=== PATIENT | female | born 1985 | race Caucasian/White ===

== ENCOUNTER 2019-01-07 13:37 | Emergency (ER) | payer OTHER ==
[2019-01-07 13:41] VITALS: BP 105/65
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
[2019-01-07 15:04] LABS: HCG Qualitative,Urine Negative (Negative)
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
[2019-01-07] MEDS ORDERED: VALIUM PO ONE (16:38)
[2019-01-07] MEDS ORDERED: IBUPROFEN PO ONE (16:38)
[2019-01-07] MEDS ORDERED: IBUPROFEN ONE (16:41)
[2019-01-07] MEDS ORDERED: ULTRAM PO ONE (16:45)
[2019-01-07] MEDS ORDERED: TORADOL IM ONE (16:45)
[2019-01-07] MEDS ORDERED: TORADOL ONE (16:47)
[2019-01-07] MEDS ORDERED: ULTRAM ONE (16:47)
--- NOTE | 2019-01-07 16:54 | XRay Report ---
PROCEDURE: XR SPINE LUMBOSACRAL 2-3V TECHNIQUE: 2 views of the lumbar spine HISTORY: low back pain COMPARISONS: None. FINDINGS: There is normal alignment without acute fracture or dislocation. The vertebral body heights and inter vertebral disc spaces are maintained. The posterior elements are intact. The paravertebral soft tissu es are normal. IMPRESSION: No acute bony abnormality of the lumbar spine. This document is electronically signed by Abbey Coelho MD., January 07 2019 04:52:29 PM ET
--- NOTE | 2019-01-07 17:13 | XRay Report ---
PROCEDURE: XR SPINE CERVICAL 2-3V TECHNIQUE: AP, lateral, and odontoid views of the cervical spine HISTORY: posterior neck pain COMPARISONS: None . FINDINGS: There is mild disc space narrowing at C5-C6. The vertebral body heights and other disc spaces are wel l maintained. However, there is reversal of normal cervical curvature centered around C4-C5, likely d ue to muscle spasm. No prevertebral soft tissue swelling is seen. The odontoid is intact. IMPRESSION: No acute bony abnormality. Reversal of cervical curvature centered around C4-C5 is likely due to muscle spasm. Early degenerative changes at C5-C6 disc space is seen. This document is electronically signed by Deisi Aguilera MD., January 07 2019 05:11:29 PM ET
== END 2019-01-07 20:05 | disposition home or self-care (01) ==
LOC: ED 13:37
DX: S16.1XXA Strain of muscle, fascia and tendon at neck level, initial encounter (principal); S39.012A Strain of muscle, fascia and tendon of lower back, initial encounter; S20.219A Contusion of unspecified front wall of thorax, initial encounter; F17.200 Nicotine dependence, unspecified, uncomplicated; V89.2XXA Person injured in unspecified motor-vehicle accident, traffic, initial encounter; Y93.89 Activity, other specified; Y92.488 Other paved roadways as the place of occurrence of the external cause; Y99.8 Other external cause status
CPT/HCPCS: 71110; 72040; 72100; 81025; 99283; J1885

== ENCOUNTER 2019-06-24 17:38 | Emergency (ER) | payer SELFPAY ==
[2019-06-24 17:55] VITALS: BP 102/65
[2019-06-24 18:31] LABS: Basophils % (Auto) 0.4 % (0.0-1.8); Eosinophils # (Auto) 0.1 K/mm3 (0.0-0.4); Eosinophils % (Auto) 1.4 % (0.0-4.3); Hematocrit 38.2 % (30.3-42.9); Hemoglobin 13.1 gm/dl (10.1-14.3); Lymphocytes # (Auto) 1.8 K/mm3 (1.2-5.4); Lymphocytes % (Auto) 22.2 % (13.4-35.0); Mean Corpuscular HGB Conc 34 % (30-34); Mean Corpuscular Volume 90 fl (79-97); Monocytes # (Auto) 0.5 K/mm3 (0.0-0.8); Monocytes % (Auto) 6.8 % (0.0-7.3); Platelet Count 192 K/mm3 (140-440); Red Blood Count 4.24 M/mm3 (3.65-5.03); Red Cell Distribution Width 13.1 % (13.2-15.2)
[2019-06-24 18:40] LABS: HCG Qualitative,Urine Positive (Negative)
[2019-06-24 18:41] LABS: Bilirubin,Urine NEG (Negative); Blood,Urine NEG (Negative); Calcium Oxalate Crystals,Urine 1+; Color,Urine Amber (Yellow); Mucus,Urine 3+ /HPF
[2019-06-24 18:51] LABS: BUN/Creatinine Ratio 8; Blood Urea Nitrogen 5 mg/dL (7-17); Calcium 9.3 mg/dL (8.4-10.2); Hemolysis Index 14
== END 2019-06-24 20:34 | disposition left against medical advice (07) ==
LOC: ED 17:38
DX: M54.5 Low back pain (principal); Z53.21 Procedure and treatment not carried out due to patient leaving prior to being seen by health care provider
CPT/HCPCS: 36415; 80048; 81001; 81025; 85025; 87086

== ENCOUNTER 2019-12-30 15:22 | Observation (INO) | payer MEDICAID ==
[2019-12-30] MEDS ORDERED: LACTATED RINGERS 1,000 ML ONE (15:54)
[2019-12-30 16:17] LABS: Bilirubin,Urine NEG (Negative); Blood,Urine NEG (Negative); Color,Urine Yellow (Yellow); Mucus,Urine 1+ /HPF; Protein,Urine <15 mg/dL mg/dL (Negative); Urobilinogen,Urine < 2.0 mg/dL (<2.0)
[2019-12-30] MEDS ORDERED: TERBUTALINE 1 MG/1 ML INJ ONE (16:30)
[2019-12-30] MEDS ORDERED: TERBUTALINE 1 MG/1 ML INJ SUB-Q SCH (17:00)
[2019-12-30] MEDS ORDERED: LACTATED RINGERS 1,000 ML IV SCH (18:00)
[2019-12-30] MEDS: BETAMET ACET/BETAMET NA PH 6 MG/ML INJ 5 ML MDV IM SCH (18:02)
[2019-12-30] MEDS: LACTATED RINGERS 1,000 ML IV SCH (18:17)
[2019-12-30] MEDS ORDERED: ACETAMINOPHEN 500 MG TAB PO ONE (18:34)
[2019-12-30 21:02] LABS: Hematocrit 27.2 % (30.3-42.9); Hemoglobin 8.8 gm/dl (10.1-14.3); Mean Corpuscular HGB Conc 33 % (30-34); Mean Corpuscular Volume 81 fl (79-97); Platelet Count 209 K/mm3 (140-440); Red Blood Count 3.36 M/mm3 (3.65-5.03); Red Cell Distribution Width 15.6 % (13.2-15.2)
[2019-12-30 21:14] LABS: BUN/Creatinine Ratio 12; Blood Urea Nitrogen 6 mg/dL (7-17); Calcium 9.2 mg/dL (8.4-10.2); Hemolysis Index 1
--- NOTE | 2019-12-30 21:26 | Ultrasound Report ---
ULTRASOUND OBSTETRIC INDICATION / CLINICAL INFORMATION: labor, well-being check. Clinical Gestational Age (GA): 34 weeks 0 days TECHNIQUE: Transabdominal. COMPARISON: None available. FINDINGS: There is a single intrauterine . Biparietal Diameter = 8.4 cm = 33 weeks, 4 day(s). Head Circumference = 30.5 cm = 33 weeks, 6 day(s). Abdominal Circumference = 30.0 cm = 34 weeks, 0 day(s). Femur Length = 6.0 cm = 31 weeks, 2 day(s). Average Ultrasound Age (AUA) = 33 weeks, 1 day(s). Heart Rate: 155 beats per minute. Estimated Weight in grams (if calculated): 2129 Estimated Weight Growth Percentile (if calculated): Position: cephalic. Cervix: closed. Length in cm (if measured): 3.1 Placenta: Posterior, fundal and free of the os. Amniotic Fluid Volume: normal Amniotic Fluid Index (TITO) in cm (if calculated): 7.0. Maternal Adnexa: No significant abnormality. BREATHING MOVEMENT = 2 GROSS BODY MOVEMENT = 2 TONE = 2 QUALITATIVE AMNIOTIC FLUID VOLUME = 2 TOTAL BIOPHYSICAL SCORE = 8/8 IMPRESSION: 1. Single, living intrauterine with estimated sonographic age of 33 weeks, 1 day(s). 2. No significant sonographic abnormality. Signer Name: Jad Rizzo MD Signed: 12/30/2019 9:21 PM Workstation Name: [id number]
[2019-12-31] MEDS ORDERED: ZOLPIDEM 5 MG TAB PO PRN (00:37)
[2019-12-31] MEDS: ZOLPIDEM 5 MG TAB PO PRN ×2 (00:58→22:05)
[2019-12-31] MEDS: LACTATED RINGERS 1,000 ML IV SCH ×4 (01:36→18:29)
--- NOTE | 2019-12-31 08:06 | History and Physical Report ---
History of Present Illness Date of examination: 12/31/19 Date of admission: 12/30/19 15:23 Chief complaint: contractions History of present illness: Pt is a 34 year old female MICHAELLE 02/10/20 at 34w1d who presents with contractions and cervical change to 3 cm. She denies bleeding or leakage of fluid. She has had care at [facility] since 12 wks complicated by bacterial vaginosis treated, genital herpes without lesion or prodrome, intermittent pelvic pain, syncopal episodes s/p Cardiology referral. She is GBS positive. 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 Family/Genetic History: heart disease Social history: no significant social history - Obstetrical History Expected Date of Delivery: 02/10/20 Actual Gestation: 34 Week(s) 1 Day(s) : 2 Para: 1 Hx # Term Pregnancies: 1 Number of Pregnancies: 0 Spontaneous Abortions: 0 Induced : 0 Number of Living Children: 1 Medications and Allergies Allergies Allergy/AdvReac Type Severity Reaction Status Date / Time No Known Allergies Allergy Verified 09/13/14 10:31 Home Medications Medication Instructions Recorded Confirmed Last Taken Type Ibuprofen [Motrin] 800 mg PO Q8HR PRN #15 tablet 03/06/16 12/31/19 Unknown Rx Ibuprofen [Motrin] 600 mg PO Q8H PRN #20 tablet 08/16/16 12/31/19 Unknown Rx Cyclobenzaprine [Flexeril] 10 mg PO TID PRN #20 tablet 01/07/19 12/31/19 Unknown Rx Ibuprofen 800 mg PO Q6H PRN #15 tablet 01/07/19 12/31/19 Unknown Rx Active Meds: Active Medications Betamethasone Acet/Betameth SodPhos (Celestone Soluspan) 12 mg IM Q24H GEORGETTE Stop: 12/31/19 17:45 Last Admin: 12/30/19 18:02 Dose: 12 mg Documented by: Lactated Ringer's (Lactated Ringers) 1,000 mls @ 125 mls/hr IV DIRECT GEORGETTE Last Admin: 12/31/19 01:36 Dose: 125 mls/hr Documented by: Terbutaline Sulfate (Brethine) 0.25 mg SUB-Q Q20MIN GEORGETTE Stop: 01/01/20 17:01 Last Admin: 12/30/19 17:08 Dose: 0.25 mg Documented by: Zolpidem Tartrate (Ambien) 5 mg PO QHS PRN PRN Reason: Sleep Last Admin: 12/31/19 00:58 Dose: 5 mg Documented by: Review of Systems All systems: negative - Vital Signs Vital signs: Vital Signs Pulse Pulse Ox 98 H 99 12/30/19 15:37 12/30/19 15:37 Temp Pulse Resp BP Pulse Ox 98.9 F 78 18 111/71 100 12/30/19 18:23 12/30/19 18:15 12/30/19 18:23 12/30/19 18:15 12/30/19 17:55 - Physical Exam Breasts: Positive: deferred Cardiovascular: Regular rate Lungs: Positive: Clear to auscultation Abdomen: Positive: soft (gravid ) Uterus: Positive: enlarged (gravid ) Extremities: Positive: normal - Obstetrical FHR: auscultation normal Uterine Contraction Monitor Mode: External Cervical Dilatation: 3 Cervical Effacement Percentage: 50 station: -3 Uterine Contraction Pattern: Irregular Uterine Tone Measurement Phase: Resting Results Result Diagrams: 12/30/19 20:08 12/30/19 20:08 Abnormal lab results 12/30/19 12/30/19 Range/Units 20:08 20:08 RBC 3.36 L (3.65-5.03) M/mm3 Hgb 8.8 L (10.1-14.3) gm/dl Hct 27.2 L (30.3-42.9) % MCH 26 L (28-32) pg RDW 15.6 H (13.2-15.2) % Sodium 136 L (137-145) mmol/L Potassium 3.4 L (3.6-5.0) mmol/L BUN 6 L (7-17) mg/dL Creatinine 0.5 L (0.7-1.2) mg/dL Glucose 134 H (65-100) mg/dL All other labs normal. Assessment and Plan A: IUP at 34w1d s/p 1 dose betamethasone; BPP 12/30/19 8/8; 2129g (AUA 33w1d) labor Genital Herpes without lesion or prodrome GBS positive P: Admit to labor and delivery Continue close clinical monitoring Start Valtrex 500 mg BID and Ampicillin for GBS prophylaxis Second betamethasone dose tonight Cloesly monitor clinical status
[2019-12-31] MEDS ORDERED: AMPICILLIN/NS 2 GM/100 ML 2 GM/100 ML BAG IV SCH (08:30)
[2019-12-31] MEDS ORDERED: SIMETHICONE 80 MG CHEW TAB PO PRN (09:00)
[2019-12-31] MEDS ORDERED: SODIUM CHLORIDE NASAL SPRAY 44ML NS PRN (09:00)
[2019-12-31] MEDS ORDERED: ONDANSETRON 4 MG/2 ML INJ IV PRN (09:00)
[2019-12-31] MEDS ORDERED: DOCUSATE SODIUM 100 MG CAP PO PRN (09:00)
[2019-12-31] MEDS ORDERED: valACYclovir 500 MG TAB PO SCH (10:00)
[2019-12-31] MEDS ORDERED: PRENATAL VIT27-FE FUMARATE-FOLIC ACID VIT TAB PO SCH (10:00)
[2019-12-31] MEDS: AMPICILLIN/NS 1 GM/50 ML 1 GM/50 ML BAG IV SCH ×4 (13:55→23:08)
[2019-12-31] MEDS: ACETAMINOPHEN 325 MG TAB PO PRN ×2 (14:39→19:41)
[2019-12-31] MEDS: BETAMET ACET/BETAMET NA PH 6 MG/ML INJ 5 ML MDV IM SCH (17:23)
[2020-01-01] MEDS: AMPICILLIN/NS 1 GM/50 ML 1 GM/50 ML BAG IV SCH ×2 (03:34→08:30)
[2020-01-01 11:33] LABS: BUN/Creatinine Ratio 10; Blood Urea Nitrogen 3 mg/dL (7-17); Calcium 8.5 mg/dL (8.4-10.2); Hemolysis Index 8
--- NOTE | 2020-01-01 11:46 | Ultrasound Report ---
ULTRASOUND BIOPHYSICAL PROFILE INDICATION / CLINICAL INFORMATION: labor, well being. COMPARISON: 12/30/2019 FINDINGS: BREATHING MOVEMENT = 2 GROSS BODY MOVEMENT = 2 TONE = 2 QUALITATIVE AMNIOTIC FLUID VOLUME = 2 TOTAL BIOPHYSICAL SCORE = 05/22 HEART RATE (beats per minute): 143 IMPRESSION: 1. biophysical profile = 05/22 Signer Name: Pedro Love MD Signed: 01/01/2020 11:41 AM Workstation Name: [id number]
[2020-01-01 12:40] VITALS: BP 101/58
--- NOTE | 2020-01-01 12:50 | Progress Note ---
Assessment and Plan A: IUP at 34w2d s/p 2 doses betamethasone; BPP 01/01/20 8/8 labor arrested at 3 cm Genital Herpes without lesion or prodrome GBS positive P: Discharge today with follow up next week. labor precautions Rx for Valtrex suppression given Subjective - Subjective Date of service: 01/01/20 Principal diagnosis: labor, IUP at 34 wks Interval history: No overnight events. Patient reports: movement normal, contractions (rare ), no new complaints, no loss of fluid, no vaginal bleeding Objective - Vital Signs Vital Signs: Vital Signs - 12hr 01/01/20 01/01/20 01/01/20 00:48 00:53 00:59 Temperature Pulse Rate 79 84 84 Blood Pressure O2 Sat by Pulse 97 98 99 Oximetry 01/01/20 01/01/20 01/01/20 01:04 01:08 01:13 Temperature Pulse Rate 86 84 88 Blood Pressure O2 Sat by Pulse 97 97 97 Oximetry 01/01/20 01/01/20 01/01/20 01:18 01:23 01:28 Temperature Pulse Rate 86 86 87 Blood Pressure O2 Sat by Pulse 97 97 97 Oximetry 01/01/20 01/01/20 01/01/20 01:33 01:39 01:44 Temperature Pulse Rate 85 84 83 Blood Pressure O2 Sat by Pulse 97 97 96 Oximetry 01/01/20 01/01/20 01/01/20 01:48 01:54 01:58 Temperature Pulse Rate 85 82 81 Blood Pressure O2 Sat by Pulse 97 97 97 Oximetry 01/01/20 01/01/20 01/01/20 02:03 02:08 02:13 Temperature Pulse Rate 77 84 83 Blood Pressure O2 Sat by Pulse 97 97 97 Oximetry 01/01/20 01/01/20 01/01/20 02:18 02:23 02:28 Temperature Pulse Rate 79 84 87 Blood Pressure O2 Sat by Pulse 97 98 97 Oximetry 01/01/20 01/01/20 01/01/20 02:33 02:38 02:43 Temperature Pulse Rate 81 78 82 Blood Pressure O2 Sat by Pulse 97 97 97 Oximetry 01/01/20 01/01/20 01/01/20 02:49 02:54 02:58 Temperature Pulse Rate 82 75 74 Blood Pressure O2 Sat by Pulse 97 97 97 Oximetry 01/01/20 01/01/20 01/01/20 03:00 03:03 03:09 Temperature 98.3 F Pulse Rate 69 78 Blood Pressure O2 Sat by Pulse 96 96 Oximetry 01/01/20 01/01/20 01/01/20 03:10 03:14 03:18 Temperature Pulse Rate 76 97 H 77 Blood Pressure O2 Sat by Pulse 94 95 97 Oximetry 01/01/20 01/01/20 01/01/20 03:24 03:28 03:33 Temperature Pulse Rate 75 71 78 Blood Pressure O2 Sat by Pulse 98 97 98 Oximetry 01/01/20 01/01/20 01/01/20 03:38 03:44 03:48 Temperature Pulse Rate 77 74 79 Blood Pressure O2 Sat by Pulse 98 98 98 Oximetry 01/01/20 01/01/20 01/01/20 03:54 03:58 04:04 Temperature Pulse Rate 77 76 80 Blood Pressure O2 Sat by Pulse 97 98 98 Oximetry 01/01/20 01/01/20 01/01/20 04:09 04:13 04:18 Temperature Pulse Rate 77 79 78 Blood Pressure O2 Sat by Pulse 98 98 98 Oximetry 01/01/20 01/01/20 01/01/20 04:23 04:28 04:33 Temperature Pulse Rate 78 77 72 Blood Pressure O2 Sat by Pulse 98 98 98 Oximetry 01/01/20 01/01/20 01/01/20 04:38 04:44 04:49 Temperature Pulse Rate 77 89 80 Blood Pressure O2 Sat by Pulse 97 98 97 Oximetry 01/01/20 01/01/20 01/01/20 04:57 05:03 05:08 Temperature Pulse Rate 90 83 77 Blood Pressure O2 Sat by Pulse 99 97 96 Oximetry 01/01/20 01/01/20 01/01/20 05:13 05:17 05:23 Temperature Pulse Rate 79 78 78 Blood Pressure O2 Sat by Pulse 97 97 97 Oximetry 01/01/20 01/01/20 01/01/20 05:28 05:33 05:38 Temperature Pulse Rate 75 75 74 Blood Pressure O2 Sat by Pulse 97 98 98 Oximetry 01/01/20 01/01/20 01/01/20 05:43 05:48 05:53 Temperature Pulse Rate 75 75 72 Blood Pressure O2 Sat by Pulse 98 97 97 Oximetry 01/01/20 01/01/20 01/01/20 05:58 06:03 06:08 Temperature Pulse Rate 75 86 80 Blood Pressure O2 Sat by Pulse 97 97 97 Oximetry 01/01/20 01/01/20 01/01/20 06:13 06:18 06:23 Temperature Pulse Rate 81 80 76 Blood Pressure O2 Sat by Pulse 96 97 97 Oximetry 01/01/20 01/01/20 01/01/20 06:28 06:33 06:38 Temperature Pulse Rate 76 80 78 Blood Pressure O2 Sat by Pulse 97 97 97 Oximetry 01/01/20 01/01/20 01/01/20 06:43 06:48 06:53 Temperature Pulse Rate 77 77 73 Blood Pressure O2 Sat by Pulse 98 97 98 Oximetry 01/01/20 01/01/20 01/01/20 06:58 07:03 07:08 Temperature Pulse Rate 73 75 79 Blood Pressure O2 Sat by Pulse 99 98 98 Oximetry 01/01/20 01/01/20 01/01/20 07:13 07:18 07:23 Temperature Pulse Rate 75 82 78 Blood Pressure O2 Sat by Pulse 98 98 98 Oximetry 01/01/20 01/01/20 01/01/20 07:28 07:33 07:38 Temperature Pulse Rate 73 79 80 Blood Pressure O2 Sat by Pulse 98 98 99 Oximetry 01/01/20 01/01/20 01/01/20 07:43 07:48 07:53 Temperature Pulse Rate 73 75 75 Blood Pressure O2 Sat by Pulse 98 98 98 Oximetry 01/01/20 01/01/20 01/01/20 07:58 08:03 08:08 Temperature Pulse Rate 86 73 75 Blood Pressure O2 Sat by Pulse 99 98 98 Oximetry 01/01/20 01/01/20 01/01/20 08:13 08:18 08:23 Temperature Pulse Rate 78 70 73 Blood Pressure O2 Sat by Pulse 97 97 97 Oximetry 01/01/2012/31/01/01/20 08:28 08:30 08:33 Temperature 98 F Pulse Rate 72 76 Blood Pressure O2 Sat by Pulse 97 96 Oximetry 01/01/2012/31/01/01/20 08:38 08:43 08:45 Temperature Pulse Rate 77 91 H 77 Blood Pressure 105/57 O2 Sat by Pulse 98 100 Oximetry 01/01/20 01/01/20 01/01/20 08:48 08:53 08:58 Temperature Pulse Rate 71 162 H 160 H Blood Pressure O2 Sat by Pulse 100 81 L 81 L Oximetry 01/01/20 01/01/20 01/01/20 09:03 09:09 09:15 Temperature Pulse Rate 154 H 124 H Blood Pressure O2 Sat by Pulse 78 L 73 L 83 L Oximetry 01/01/20 01/01/20 01/01/20 09:16 09:21 09:24 Temperature Pulse Rate 138 H 94 H 197 H Blood Pressure O2 Sat by Pulse 88 0 L 83 L Oximetry 01/01/20 01/01/20 01/01/20 09:26 09:33 09:38 Temperature Pulse Rate 129 H Blood Pressure O2 Sat by Pulse 88 80 L 85 Oximetry 01/01/20 01/01/20 01/01/20 12:39 12:40 12:45 Temperature Pulse Rate 90 80 82 Blood Pressure 101/58 O2 Sat by Pulse 81 L 92 76 L Oximetry - Exam Abdomen: Present: soft (gravid ) Uterus: Present: normal (gravid ) FHR: auscultation normal Cervical Dilatation: 3 Cervical Effacement Percentage: 50 station: -3 Uterine Contraction Pattern: Absent Uterine Tone Measurement Phase: Resting - Labs Labs: Abnormal Labs 12/30/19 12/30/19 01/01/20 20:08 20:08 10:59 RBC 3.36 L Hgb 8.8 L Hct 27.2 L MCH 26 L RDW 15.6 H Sodium 136 L 136 L Potassium 3.4 L Carbon Dioxide 19 L BUN 6 L 3 L Creatinine 0.5 L 0.3 L Glucose 134 H 106 H Laboratory Results - last 24 hr 01/01/20 10:59 Sodium 136 L Potassium 3.6 Chloride 104.3 Carbon Dioxide 19 L Anion Gap 16 BUN 3 L Creatinine 0.3 L Estimated GFR > 60 BUN/Creatinine Ratio 10 Glucose 106 H Calcium 8.5
--- NOTE | 2020-01-01 12:54 | Discharge Summary ---
Providers - Providers Date of Admission: 12/30/19 15:23 Date of discharge: 01/01/20 Attending physician: SAMEER CRUZ MD Primary care physician: SAMEER CRUZ MD Hospitalization Reason for admission: labor Hospital course: Admitted for labor. Arrested at 3 cm. s/p 2 doses of betamethasone. Condition at discharge: Stable Disposition: DC-01 TO HOME OR SELFCARE - Discharge Diagnoses (1) labor in third trimester Status: Acute Qualifiers: labor delivery status: without delivery Qualified Code(s): O60.03 - labor without delivery, third trimester (2) Genital herpes Status: Acute Qualifiers: Herpes simplex infection site: unspecified Qualified Code(s): A60.00 - Her pesviral infection of urogenital system, unspecified Plan - Discharge Medications Prescriptions: valACYclovir [Valtrex] 500 mg PO BID #60 tab - Provider Discharge Summary Activity: no heavy lifting 4 weeks, no strenuous exercise, other Diet: routine Instructions: routine Additional instructions: [] Smoking cessation referral if applicable(refer to patient education folder for contact #) [] Refer to [facility]'s [facility] Booklet Call your doctor immediately for: * Fever > 100.5 * Heavy vaginal bleeding ( >1 pad per hour) * Severe persistent headache * Shortness of breath * Reddened, hot, painful area to leg or breast * Drainage or odor from incision. * Keep incision clean and dry at all times and follow doctor's instructions regarding bathing/showering - Follow up plan Follow up: ANH OSORIO MD [Staff Physician] - 7 Days
== END 2020-01-01 15:23 | disposition home or self-care (01) ==
LOC: TRG 15:22 → LD 15:23 → TRG 15:23
PROVIDERS: ADMIT Obstetrics & Gynecology; ATTEND Obstetrics & Gynecology
DX: O60.03 Preterm labor without delivery, third trimester (principal); O98.513 Other viral diseases complicating pregnancy, third trimester; A60.00 Herpesviral infection of urogenital system, unspecified; Z3A.34 34 weeks gestation of pregnancy
CPT/HCPCS: 36415; 76816; 76819; 80048; 81001; 85027; 86850; 86900; 86901; 96365; 96366; 96372; G0378; J0290; J0702; J3105; J7120

== ENCOUNTER 2020-03-09 06:00 | Day surgery (SDC) | payer MEDICAID ==
[2020-03-04 11:27] LABS: Basophils % (Auto) 0.7 % (0.0-1.8); Eosinophils # (Auto) 0.1 K/mm3 (0.0-0.4); Hemoglobin 11.6 gm/dl (10.1-14.3); Lymphocytes # (Auto) 1.6 K/mm3 (1.2-5.4); Lymphocytes % (Auto) 25.2 % (13.4-35.0); Mean Corpuscular HGB Conc 33 % (30-34); Mean Corpuscular Volume 82 fl (79-97); Monocytes # (Auto) 0.4 K/mm3 (0.0-0.8); Monocytes % (Auto) 6.9 % (0.0-7.3); Platelet Count 198 K/mm3 (140-440); Red Blood Count 4.29 M/mm3 (3.65-5.03)
[2020-03-04 11:35] LABS: Red Cell Distribution Width 20.2 % (13.2-15.2)
--- NOTE | 2020-03-09 08:47 | Short Stay Summary ---
Short Stay Documentation Date of service: 03/09/20 Narrative H&P: 34y/o with undesired fertility. Patient is aware of other contraceptive options. She elects for permanent sterilization. - History Principal diagnosis: Undesired fertility Past Medical History: No medical history Past Surgical History: No surgical history Social history: single - Allergies and Medications Current Medications: Allergies No Known Allergies Allergy (Verified 03/02/20 16:49) Home Medications Medication Instructions Recorded Confirmed Last Taken Type Ibuprofen [Motrin] 800 mg PO Q8HR PRN #15 tablet 03/06/16 03/02/20 Unknown Rx Butalb/Acetaminophen/Caffeine 1 cap PO Q6HR PRN 03/02/20 03/02/20 Unknown History [Fioricet 50-300-40 mg CAP] - Physical exam General appearance: no acute distress Integumentary: no rash HEENT: Atraumatic Lungs: Clear to auscultation Breasts: deferred Heart: Regular rate Gastrointestinal: normal Female Genitourinary: deferred Rectal Exam: deferred Extremities: no ischemia - Brief post op/procedure progress note Date of procedure: 03/09/20 Pre-op diagnosis: Undesired fertility Post-op diagnosis: same Procedure: Laparoscopy and bilateral salpingectomy Anesthesia: LUZ MARIA Surgeon: DAVID AGUILERA Estimated blood loss: minimal Pathology: list (Bilateral fallopian tubes) Specimen disposition: to lab Condition: stable - Hospital course Hospital course: The patient was admitted the day of surgery and underwent a laparoscopic bilateral tubal ligation. Please see operative note for details of surgery. Her postoperative course was uneventful. - Disposition Condition at discharge: Good Disposition: DC-01 TO HOME OR SELFCARE - Discharge Diagnoses (1) Unwanted fertility Status: Acute Short Stay Discharge Plan Activity: other (Pelvic rest for 1 week) Diet: regular Additional Instructions: Follow-up is not required Follow-up as needed Forms: Outpatient Surgery DC Inst. Prescriptions: Ibuprofen [Motrin] 800 mg PO Q8HR PRN #60 tablet PRN Reason: Pain , Severe (7-10) HYDROcodone/APAP 5-325 [[place] 5/325] 1 each PO Q6HR PRN #20 tablet PRN Reason: Pain
[2020-03-09] MEDS ORDERED: HYDROmorphone 1 MG/1 ML INJ IV PRN (10:14)
[2020-03-09] MEDS ORDERED: ONDANSETRON 4 MG/2 ML INJ IV PRN (10:14)
[2020-03-09] MEDS ORDERED: ACETAMINOPHEN 500 MG TAB PO NR (10:15)
[2020-03-09] MEDS ORDERED: MAGNESIUM OXIDE 400 MG TAB PO NR (10:15)
--- NOTE | 2020-03-09 10:15 | Anesthesia Day of Surgery ---
Anesthesia Day of Surgery - Day of Surgery Patient Examined: Yes Patient H&P Reviewed: Yes Patient is NPO: Yes
--- NOTE | 2020-03-09 10:20 | Anesthesia Consultation ---
Anesthesia Consult and Med Hx Date of service: 03/09/20 - Airway Anesthetic Teeth Evaluation: Chipped ROM Head & Neck: Adequate Mental/Hyoid Distance: Adequate Mallampati Class: Class II Intubation Access Assessment: Good - Pre-Operative Health Status ASA Pre-Surgery Classification: ASA2 Proposed Anesthetic Plan: General ( ) - Pulmonary Hx Smoking: Yes Hx Asthma: No COPD: No Hx Pneumonia: No - Cardiovascular System Hx Hypertension: No (Had ECHO/ECG in December ) - Central Nervous System Hx Seizures: No Hx Psychiatric Problems: No - Endocrine Hx Renal Disease: No Hx End Stage Renal Disease: No Hx Hypothyroidism: No Hx Hyperthyroidism: No - Hematic Hx Anemia: Yes Hx Sickle Cell Disease: No - Other Systems Hx Alcohol Use: No Hx Cancer: No
[2020-03-09] MEDS ORDERED: MIDAZOLAM 2 MG/2 ML INJ IV NR (11:00)
[2020-03-09] MEDS ORDERED: CELECOXIB 200 MG CAP PO NR (11:00)
[2020-03-09] MEDS ORDERED: LACTATED RINGERS 1,000 ML IV SCH (11:00)
[2020-03-09] MEDS ORDERED: BUPIVACAINE/PF (0.5%) 5 MG/1 ML 30 ML VIAL INFILTRATI ONE ×2 (11:41→12:23)
[2020-03-09] MEDS ORDERED: ROCURONIUM 50 MG/5 ML INJ IV ONE (11:43)
[2020-03-09] MEDS ORDERED: GLYCOPYRROLATE 0.4 MG/2 ML INJ ONE (11:43)
[2020-03-09] MEDS ORDERED: PHENYLEPHRINE/NS 1,000 MCG/10 ML SYRINGE (OR USE) IV ONE (11:43)
[2020-03-09] MEDS ORDERED: fentaNYL 100 MCG/2 ML INJ ONE (11:43)
[2020-03-09] MEDS ORDERED: SUCCINYLCHOLINE CHLORIDE 200 MG/10 ML INJ MDV ONE (11:43)
[2020-03-09] MEDS ORDERED: NEOSTIGMINE 10MG/10 ML INJ MDV ONE (11:43)
[2020-03-09] MEDS ORDERED: propofoL 200 MG/20 ML VIAL IV ONE (11:43)
[2020-03-09] MEDS ORDERED: LIDOCAINE MPF (2%) 20 MG/1 ML VIAL 5 ML ONE (11:43)
[2020-03-09] MEDS ORDERED: ONDANSETRON 4 MG/2 ML INJ ONE (11:43)
[2020-03-09] MEDS ORDERED: HYDROmorphone 1 MG/1 ML INJ ONE (12:08)
[2020-03-09] MEDS ORDERED: SODIUM CHLORIDE 0.9% IRR 1,500 ML BOTTLE IR ONE (12:23)
--- NOTE | 2020-03-09 12:47 | Operative Report ---
Operative Report Operative Report: Date of surgery: March 09, 2020 Preoperative diagnosis: Unwanted fertility Postoperative diagnosis: Same as above Procedure: Laparoscopy; bilateral salpingectomy Surgeon: Maude Hauser M.D. Anesthesia: General endotracheal anesthesia Estimated blood loss: Minimal Findings: Normal uterus tubes and ovaries Indication: 34-year-old -1-0-2 with undesired fertility Procedure: The patient was taken to the operating room and given general endotracheal anesthesia without complication. The patient is prepped and draped in a normal sterile fashion. A bivalve speculum was placed in the patient's vagina and a single-tooth tenaculum was placed on the anterior lip of the cervix .A uterine acorn manipulator was placed, and the bivalve speculum was then removed. Attention was then turned to the patient's abdomen where a 5 mm infraumbilical skin incision was then made. A Veress needle was placed and peritoneal entry was verified water-filled syringe. Insufflation of the peritoneal cavity was performed with CO2 gas. A 5 mm trocar was placed and the laparoscope was then inserted. The patient was then placed in Trendelenburg. A 7 mm suprapubic skin incision was then made. Under direct visualization a 7 mm trocar was then placed. An additional left lateral 5 mm trocar was placed under direct visualization general survey of the patient's abdomen revealed normal uterus tubes and ovaries. The fallopian tube was then followed out to the fimbriated end. The tube was grasped at the fimbriated laded end. The LigaSure device was used to coagulate and transect the mesosalpinx. The tube on the left was transected from the ovary and the uterus. The tube was removed with a 7 mm trocar. This was performed on the contralateral side as well. The trocars were then removed. The pneumoperitoneum was then released. The 5 mm trocar laparoscope was then removed. The skin incisions were then closed with 4-0 Monocryl. The incisions were injected with quarter percent Marcaine. Dressings were applied to the incision. The vaginal instruments were then removed atraumatically. Then successfully extubated and taken to the recovery room. All sponge laps and needle counts were correct x2. Specimen sent to pathology consisted of bilateral tubes
[2020-03-09] MEDS ORDERED: HYDROcodone/ACETAMINOPHEN 5-325 MG TAB PO PRN (13:12)
[2020-03-09 14:14] VITALS: BP 108/63
--- NOTE | 2020-03-09 19:24 | Post Anesthesia Evaluation ---
- Post Anesthesia Evaluation Patient Participated: Yes Airway Patent: Yes Stable Respiratory Function: Yes Nausea/Vomiting: No Temp > 96.8F: Yes Pain Manageable: Yes Adequeate Hydration: Yes Anesthesia Complications: No Block Receding Appropriately: Not Applicable Patient on Ventilator: No
== END 2020-03-09 06:01 | disposition home or self-care (01) ==
LOC: OR 06:00
PROVIDERS: ATTEND Obstetrics & Gynecology
DX: Z30.2 Encounter for sterilization (principal); N70.91 Salpingitis, unspecified; F17.210 Nicotine dependence, cigarettes, uncomplicated; Z79.899 Other long term (current) drug therapy; Z83.3 Family history of diabetes mellitus; Z98.890 Other specified postprocedural states; Z82.49 Family history of ischemic heart disease and other diseases of the circulatory system; Z86.2 Personal history of diseases of the blood and blood-forming organs and certain disorders involving the immune mechanism
CPT/HCPCS: 36415; 58661; 84703; 85025; 88302; J0330; J1170; J2250; J2370; J2405; J2704; J2710; J3010; J7120